=== PATIENT | male | born 1955 | race Caucasian/White ===

== ENCOUNTER 2017-07-31 00:49 | Inpatient (IN) | payer OTHER ==
[~2017-07-31] VITALS: Ht 180.3 cm; Wt 95.0 kg
[~2017-07-31 00:49] MED LIST: HYDR12.56 PO; METO100T PO; PRIN10TA PO
[2017-07-31 00:52] VITALS: BP 178/86; PULSE 61; RESP 20; TEMP 98; O2SAT 95
[2017-07-31] MEDS ORDERED: LISI10TA3 PO (00:56)
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
[2017-07-31 02:15] LABS: AUTOMATED NEUTROPHIL # 5.9 TH/MM3 (1.8-7.7); BASOPHIL % 0.3 % (0.0-2.0); EOSINOPHIL % 0.2 % (0.0-4.0); LYMPH % 14.1 % (9.0-44.0); MEAN CELL VOLUME 95.1 FL (80.0-100.0); MEAN CORPUSCULAR HEMOGLOBIN 33.6 PG (27.0-34.0); MEAN CORPUSCULAR HGB CONC 35.3 % (32.0-36.0); MEAN PLATELET VOLUME 8.4 FL (7.0-11.0); MONO % 4.5 % (0.0-8.0); MONOCYTE # 0.3 TH/MM3 (0-0.9); NEUT % 80.9 % (16.0-70.0); PLATELET COUNT 128 TH/MM3 (150-450); RED BLOOD COUNT 5.36 MIL/MM3 (4.50-5.90); RED CELL DISTRIBUTION WIDTH 13.7 % (11.6-17.2); WHITE BLOOD COUNT 7.3 TH/MM3 (4.0-11.0)
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
[2017-07-31 02:39] LABS: ALBUMIN 4.1 GM/DL (3.4-5.0); AST (GOT) 50 U/L (15-37); BLOOD UREA NITROGEN 4 MG/DL (7-18); CALCIUM 8.6 MG/DL (8.5-10.1); CHLORIDE 99 MEQ/L (98-107); CREATININE 0.89 MG/DL (0.60-1.30); GLOMERULAR FILTRATION RATE 87 ML/MIN (>89); GLUCOSE,RANDOM 101 MG/DL (74-106); SODIUM (NA) 135 MEQ/L (136-145)
[2017-07-31 02:42] LABS: ALKALINE PHOSPHATASE 112 U/L (45-117); ALT (GPT) 38 U/L (12-78); TOTAL BILIRUBIN ADULT 0.5 MG/DL (0.2-1.0); TOTAL PROTEIN 9.7 GM/DL (6.4-8.2)
[2017-07-31 03:28] LABS: BILIRUBIN, URINE NEG (NEG); BLOOD, URINE MOD (NEG); GLUCOSE,URINE NEG (NEG); KETONE, URINE TRACE mg/dL (NEG); MUCUS URINE FEW /lpf (OCC); NITRITE,URINE NEG (NEG); URINE COLOR YELLOW (YELLW/STRAW); URINE LEUKOCYTE ESTERASE NEG (NEG)
[2017-07-31] MEDS ORDERED: MORPHINE SULFATE 2 MG/ML SYRINGE IV PUSH PRN ×2 (04:45)
[2017-07-31] MEDS ORDERED: LORazepam 1 MG TAB PO PRN (04:45)
[2017-07-31] MEDS ORDERED: ACETAMINOPHEN 1000 MG/100 ML 100 ML IV PRN (04:45)
[2017-07-31] MEDS ORDERED: SENNOSIDES 8.6 MG TAB PO PRN (04:45)
[2017-07-31] MEDS ORDERED: FLUMAZENIL 0.5 MG/5 ML VIAL IV PUSH PRN (04:45)
[2017-07-31] MEDS ORDERED: METOCLOPRAMIDE HCL 10 MG/2 ML VIAL IV PUSH PRN (04:45)
[2017-07-31] MEDS ORDERED: BISACODYL 10 MG SUPP RECTAL PRN (04:45)
[2017-07-31] MEDS ORDERED: SODIUM CHLORIDE 0.9% FLUSH 10 ML FLUSH IV FLUSH PRN (04:45)
[2017-07-31] MEDS ORDERED: LORazepam 2 MG/ML VIAL IV PUSH PRN ×3 (04:45)
[2017-07-31] MEDS ORDERED: MAGNESIUM HYDROXIDE SUSP 30 ML CUP PO PRN (04:45)
[2017-07-31] MEDS ORDERED: HALOPERIDOL LACTATE 5 MG/ML AMP IM PRN (04:45)
[2017-07-31] MEDS ORDERED: LACTULOSE SYRUP 20 GM/30 ML CUP PO PRN (04:45)
[2017-07-31] MEDS ORDERED: LORazepam 2 MG TAB PO PRN (04:45)
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
[2017-07-31] MEDS: SODIUM CHLOR 0.9% 1000 ML INJ 1,000 ML IV SCH ×2 (05:01→14:33)
[2017-07-31] MEDS: THIAMINE INJ 100 MG in SODIUM CHLORIDE 0.9% INJ 100 ML IV SCH (05:01)
[2017-07-31] MEDS: LORazepam 2 MG/ML VIAL IV PUSH PRN ×2 (05:41→14:48)
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
[2017-07-31 05:59] VITALS: BP 142/70; PULSE 88; RESP 20; O2SAT 98
[2017-07-31] MEDS: FOLIC ACID 1 MG TAB PO SCH (10:05)
[2017-07-31] MEDS: MULTIVITAMINS/MINERALS THERAPEUTIC TAB PO SCH (10:05)
[2017-07-31] MEDS: DOCUSATE SODIUM 50 MG/SENNA 8.6 MG TAB PO SCH ×2 (10:05→20:27)
[2017-07-31] MEDS: SODIUM CHLORIDE 0.9% FLUSH 10 ML FLUSH IV FLUSH SCH ×2 (10:06→20:26)
[2017-07-31 11:14] VITALS: BP 168/88; PULSE 78; RESP 16; O2SAT 96
[2017-07-31 14:40] LABS: INTERNATIONAL NORMALIZED RATIO 1.2 RATIO; PROTHROMBIN TIME - PATIENT 11.8 SEC (9.8-11.6)
[2017-07-31 16:00] VITALS: BP 188/83; PULSE 63; RESP 16; TEMP 99.2; O2SAT 97
[2017-07-31 19:27] VITALS: BP 197/84; PULSE 63; RESP 19; TEMP 98.4; O2SAT 96
[2017-07-31 21:26] VITALS: BP 181/79
[2017-07-31] MEDS ORDERED: ENALAPRILAT 1.25 MG/ML VIAL IV PUSH PRN (22:45)
[2017-08-01 00:04] VITALS: BP 178/74; PULSE 68; RESP 19; TEMP 98.4; O2SAT 95
[2017-08-01] MEDS: SODIUM CHLOR 0.9% 1000 ML INJ 1,000 ML IV SCH ×2 (00:33→03:15)
[2017-08-01 03:29] VITALS: BP 172/74; PULSE 62; RESP 18; TEMP 97.9; O2SAT 95
[2017-08-01] MEDS ORDERED: MORPHINE SULFATE 4 MG/ML INJ IV PUSH PRN ×2 (03:45)
[2017-08-01] MEDS: THIAMINE INJ 100 MG in SODIUM CHLORIDE 0.9% INJ 100 ML IV SCH (03:47)
[2017-08-01 05:58] LABS: AUTOMATED NEUTROPHIL # 6.3 TH/MM3 (1.8-7.7); BASOPHIL % 0.3 % (0.0-2.0); EOSINOPHIL % 0.1 % (0.0-4.0); HEMATOCRIT 49.7 % (39.0-51.0); HEMOGLOBIN 17.4 GM/DL (13.0-17.0); LYMPHOCYTE # 1.2 TH/MM3 (1.0-4.8); MEAN CELL VOLUME 95.1 FL (80.0-100.0); MEAN CORPUSCULAR HEMOGLOBIN 33.3 PG (27.0-34.0); MEAN PLATELET VOLUME 8.3 FL (7.0-11.0); MONO % 10.3 % (0.0-8.0); MONOCYTE # 0.9 TH/MM3 (0-0.9); NEUT % 75.3 % (16.0-70.0); PLATELET COUNT 117 TH/MM3 (150-450); RED BLOOD COUNT 5.22 MIL/MM3 (4.50-5.90); RED CELL DISTRIBUTION WIDTH 13.5 % (11.6-17.2); WHITE BLOOD COUNT 8.3 TH/MM3 (4.0-11.0)
[2017-08-01 06:32] LABS: ALBUMIN 3.4 GM/DL (3.4-5.0); ALKALINE PHOSPHATASE 102 U/L (45-117); ALT (GPT) 27 U/L (12-78); AST (GOT) 30 U/L (15-37); BICARBONATE 23.1 MEQ/L (21.0-32.0); BLOOD UREA NITROGEN 9 MG/DL (7-18); CALCIUM 8.8 MG/DL (8.5-10.1); CHLORIDE 101 MEQ/L (98-107); CREATININE 0.66 MG/DL (0.60-1.30); GLOMERULAR FILTRATION RATE 123 ML/MIN (>89); GLUCOSE,RANDOM 109 MG/DL (74-106); SODIUM (NA) 134 MEQ/L (136-145); TOTAL BILIRUBIN ADULT 1.7 MG/DL (0.2-1.0); TOTAL PROTEIN 8.4 GM/DL (6.4-8.2)
[2017-08-01 08:00] VITALS: BP 153/85; PULSE 73; RESP 18; TEMP 98.5; O2SAT 96
[2017-08-01] MEDS: SODIUM CHLORIDE 0.9% FLUSH 10 ML FLUSH IV FLUSH SCH (08:59)
[2017-08-01] MEDS: DOCUSATE SODIUM 50 MG/SENNA 8.6 MG TAB PO SCH (08:59)
[2017-08-01] MEDS: FOLIC ACID 1 MG TAB PO SCH (08:59)
[2017-08-01] MEDS: MULTIVITAMINS/MINERALS THERAPEUTIC TAB PO SCH (08:59)
[2017-08-01] MEDS ORDERED: AMLO10 PO (09:38)
[2017-08-01] MEDS ORDERED: HYDR-3366 PO (09:38)
[2017-08-01] MEDS ORDERED: COLA100C5 PO (09:40)
[2017-08-01] MEDS ORDERED: ACETAMINOPHEN/HYDROcodone 325 MG/10 MG TAB PO PRN (09:45)
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
[2017-08-01 11:00] VITALS: BP 174/89; PULSE 66; RESP 18; TEMP 98; O2SAT 66
[2017-08-01 12:00] VITALS: BP 156/77; PULSE 60; RESP 18; TEMP 98; O2SAT 96
[2017-08-01 12:33] VITALS: BP 156/77; PULSE 60; RESP 18
== END 2017-08-01 15:24 | disposition home or self-care (01) | DRG 158 ==
LOC: NEPC 00:49 → NEDA 07:18 → NEDH 09:26 → N06B 13:10 → N06A 21:07
PROVIDERS: ADMIT Hospitalist; ATTEND Hospitalist
DX: S02.40FA Zygomatic fracture, left side, initial encounter for closed fracture (principal); S02.82XA Fracture of other specified skull and facial bones, left side, initial encounter for closed fracture; D69.6 Thrombocytopenia, unspecified; S02.40DA Maxillary fracture, left side, initial encounter for closed fracture; B19.20 Unspecified viral hepatitis C without hepatic coma; F10.129 Alcohol abuse with intoxication, unspecified; Y90.4 Blood alcohol level of 80-99 mg/100 ml; Y93.55 Activity, bike riding
CPT/HCPCS: 70450; 70486; 71045; 72125; 72170; 80053; 80307; 81001; 82948; 85025; 85610; J2060; J2270; J2765; J3411; J7030